=== PATIENT | female | born 1990 | race Caucasian/White ===

== ENCOUNTER → 2017-05-11 | Day surgery (SDC) | payer OTHER ==
[~2017-05-11] MED LIST: LIDOCAINE 1% PF 2 ML VIAL. ID; LIDOCAINE 2% 100 MG/5 ML SYRINGE.; MORPHINE SULFATE 4 MG/ML DISP.SYRIN. IV; ONDANSETRON PF 4 MG/2 ML VIAL. IV; PROCHLORPERAZINE 10 MG/2 ML VIAL. IV; PROPOFOL 20 ML IV; fentaNYL PF VIAL 100 MCG/2 ML VIAL IV
[2017-05-11 09:29] LABS: U PREG PATIENT NEGATIVE (NEG)
[2017-05-11 09:30] LABS: NEG OBC UR NEG; POS OBC UR POS
[2017-05-11] MEDS: IV RINGERS,LACTATED 1000ML 1,000 ML IV (09:31)
== END ==
LOC: ENDOS 09:06
DX: K29.50 Unspecified chronic gastritis without bleeding (principal); F41.9 Anxiety disorder, unspecified; Z98.890 Other specified postprocedural states
CPT/HCPCS: 43239; 81025; J2704